=== PATIENT | male | born 1970 | race Caucasian/White ===

== ENCOUNTER 2022-07-05 07:15 | Day surgery (SDC) | payer OTHER ==
[2022-06-13 09:23] VITALS: BMI 31.0
[2022-07-05] MEDS ORDERED: MIDAZOLAM HCL 2 MG/2 ML SINGLE DOSE VIAL ONE ×2 (07:38→11:12)
[2022-07-05] MEDS ORDERED: PROPOFOL 20 ML ONE ×5 (07:38→13:44)
[2022-07-05] MEDS ORDERED: BUPIVACAINE HCL/PF 0.25% (2.5MG/ML) 10 ML VIAL ONE (07:49)
[2022-07-05] MEDS ORDERED: BUPIVACAINE HCL 50 ML ONE ×2 (07:49→09:02)
[2022-07-05] MEDS ORDERED: ACETAMINOPHEN INJECTION 100 ML IVPB ONE (08:59)
[2022-07-05] MEDS ORDERED: oxyCODONE HCL 5 MG TABLET PO PRN (09:11)
[2022-07-05] MEDS ORDERED: ONDANSETRON 4 MG/2 ML VIAL IVPUSH PRN ×2 (09:11→14:13)
[2022-07-05] MEDS ORDERED: LACTATED RINGERS SOLUTION 1,000 ML IV SCH ×2 (09:15→14:15)
[2022-07-05] MEDS ORDERED: FAMOTIDINE 20 MG TABLET PO PRN (10:26)
[2022-07-05] MEDS ORDERED: PATIENT'S OWN MEDICATION (NON-FORMULARY) (Insulin Lispro Protamin/Lispro [Humalog Mix 75-2 SQ PRN (10:26)
[2022-07-05] MEDS ORDERED: [UNRECOGNIZED DRUG - OTHER] SQ SCH (10:30)
[2022-07-05] MEDS ORDERED: TIRZEPATIDE 12.5 MG/0.5 ML SQ SCH (10:30)
[2022-07-05] MEDS ORDERED: TRANEXAMIC ACID 1000 MG/10 ML VIAL ONE ×2 (11:10→12:39)
[2022-07-05] MEDS ORDERED: VANCOMYCIN 1,000 MG VIAL (RESTRICTED TO ID ONLY) ONE (11:10)
[2022-07-05] MEDS ORDERED: ceFAZolin SODIUM 1 GM VIAL ONE (11:10)
[2022-07-05] MEDS ORDERED: PHENYLEPHRINE HCL 10 MG/1 ML SINGLE DOSE VIAL ONE (12:49)
[2022-07-05] MEDS ORDERED: MAG HYDROX/AL HYDROX/SIMETH 30 ML UNIT-DOSE CUP PO PRN (14:13)
[2022-07-05] MEDS ORDERED: MAGNESIUM HYDROX 2400MG/30ML ORAL SUSPENSION 30 ML CUP PO PRN (14:13)
[2022-07-05] MEDS ORDERED: FENTANYL CITRATE/PF 50 MCG/ML VIAL ONE ×2 (14:20→14:38)
[2022-07-05] MEDS: oxyCODONE HCL 5 MG TABLET PO PRN (16:15)
[2022-07-05] MEDS: ACETAMINOPHEN 500 MG TABLET (FP) PO SCH ×2 (16:25→21:23)
[2022-07-05] MEDS: CEFAZOLIN SODIUM 2 GM in SODIUM CHLORIDE 100 ML IVPB SCH (17:55)
[2022-07-05] MEDS: CELECOXIB 200 MG CAPSULE PO SCH (21:25)
[2022-07-05] MEDS: SENNOSIDES/DOCUSATE COMBO (SENNA PLUS) TABLET (UD) PO SCH (21:26)
[2022-07-05] MEDS: ASPIRIN 81 MG CHEWABLE TABLETS PO SCH (21:26)
[2022-07-05] MEDS ORDERED: ATORVASTATIN CA 10 MG TABLET (FP) PO SCH (22:00)
[2022-07-05] MEDS ORDERED: glipiZIDE-XL 5 MG TAB.ER.24 PO SCH (22:00)
[2022-07-05] MEDS ORDERED: ACYCLOVIR 400 MG TABLET PO SCH (22:00)
[2022-07-05] MEDS ORDERED: traZODone HCL 100 MG TABLET (FP) PO SCH (22:00)
[2022-07-06] MEDS: CEFAZOLIN SODIUM 2 GM in SODIUM CHLORIDE 100 ML IVPB SCH ×2 (01:08→05:28)
[2022-07-06] MEDS: ACETAMINOPHEN 500 MG TABLET (FP) PO SCH (06:24)
[2022-07-06 06:30] VITALS: TEMP 98.3
[2022-07-06] MEDS ORDERED: glipiZIDE-XL 5 MG TAB.ER.24 PO SCH (07:00)
[2022-07-06 08:34] LABS: CALCIUM 8.4 mg/dl (8.5-10); CREATININE 1.4 mg/dl (0.55-1.3)
[2022-07-06] MEDS: oxyCODONE HCL 5 MG TABLET PO PRN (08:39)
[2022-07-06] MEDS: ASPIRIN 81 MG CHEWABLE TABLETS PO SCH (09:38)
[2022-07-06] MEDS: CELECOXIB 200 MG CAPSULE PO SCH (09:38)
[2022-07-06] MEDS: SENNOSIDES/DOCUSATE COMBO (SENNA PLUS) TABLET (UD) PO SCH (09:39)
[2022-07-06 09:48] LABS: HEMATOCRIT 35.2 % (35.4-49); HEMOGLOBIN 12.6 GM/dL (11.7-16.9); MCH 31.8 pg (25.7-33.7); MCHC 35.8 g/dl (32.0-35.9); MEAN CELL VOLUME 88.9 fl (80-96); MEAN PLT VOLUME 7.6 fl (7.5-11.1); PLATELET COUNT 217 10^3/uL (134-434); RBC 3.96 M/mm3 (4.00-5.60); RDW 12.9 % (11.9-15.9); WHITE BLOOD COUNT 11.6 K/mm3 (4.0-10.0)
[2022-07-06] MEDS ORDERED: HYDROCHLOROTHIAZIDE 25 MG TABLET (FP) PO SCH (10:00)
[2022-07-06] MEDS ORDERED: PANTOPRAZOLE 40 MG TABLET PO SCH (10:00)
[2022-07-06] MEDS ORDERED: PATIENT'S OWN MEDICATION (NON-FORMULARY) (Empagliflozin 25 MG Tablet) PO SCH (10:00)
[2022-07-06] MEDS ORDERED: POTASSIUM CHLORIDE TABS 10 MEQ TABLET.ER (FP) PO SCH (10:00)
[2022-07-06] MEDS ORDERED: amLODIPine BESYLATE 10 MG TABLET (FP) PO SCH (10:00)
[2022-07-06] MEDS ORDERED: NEBIVOLOL 5 MG TABLET (FP) PO SCH (10:00)
[2022-07-06] MEDS ORDERED: LISINOPRIL 10 MG TABLET PO SCH (10:00)
[2022-07-06 12:35] VITALS: BP 122/84; PULSE 75; RESP 17
== END 2022-07-06 12:33 | disposition home or self-care (01) ==
LOC: FASU 07:15 → FM/S 15:22 → FASU 07-06 12:33
PROVIDERS: ATTEND Orthopaedic Surgery Adult Reconstructive Orthopaedic Surgery
PROC: 0SR90JA Replacement of Right Hip Joint with Synthetic Substitute, Uncemented, Open Approach (ICD-10-PCS; principal; 2022-07-05 11:37)
DX: M16.11 Unilateral primary osteoarthritis, right hip (principal)
CPT/HCPCS: 27130; C1776; 36415; 73502-TC-RT-FY; 80048; 82962; 85027; 88305-TC; 88311-TC; 94760; 97010-GP; 97116-GP; 97162-GP